=== PATIENT | female | born 1970 | race Caucasian/White ===

== ENCOUNTER 2023-03-17 08:33 | Emergency (ER) | payer OTHER, SELFPAY ==
--- NOTE | ~2023-03-17 | CT_ITS ---
EXAMINATION: CT abdomen pelvis wo con DATE: 03/17/2023 10:48 INDICATION: Right flank pain. TECHNIQUE: Computed tomography (CT) of the abdomen and pelvis was performed without intravenous contr ast. Automated exposure control and iterative reconstruction technique were employed. The dose-length product was 1019.21 mGy-cm. COMPARISON: None. FINDINGS: The visualized portions of the lung bases demonstrate mild atelectasis. No pleural effusion . The heart size is normal. No pericardial effusion. There are cysts in the liver measuring up to 10 mm. The gallbladder, spleen, pancreas, and adrenal glands are normal. There is cortical thinning of r ight kidney. There is moderate atrophy of left kidney. There is bilateral medullary nephrocalcinosis. There are calyceal stones in each kidney measuring up to 4 mm. There is a 4 mm calcification in eith er the left ureter or left ovarian vein at the level of the crossing of the iliac vessels. There are no dilated loops of bowel. The appendix is normal. There are no pathologically enlarged lymph nodes. There is no free intraperitoneal fluid. There is an umbilical hernia containing fat. There is mild th oracic and lumbar spondylosis. IMPRESSION: 1. 4 mm calcification that may be in either the left mid ureter or the left ovarian vein. No hydrone phrosis. 2. Bilateral medullary nephrocalcinosis and nonobstructing kidney stones. Reviewed, dictated and finalized at location A. IMPRESSION: 1. 4 mm calcification that may be in either the left mid ureter or the left ov samuel vein. No hydronephrosis. 2. Bilateral medullary nephrocalcinosis and nonobstructing kidney stones.
--- NOTE | ~2023-03-17 | XR_ITS ---
EXAMINATION: XR abdomen/kub 1V DATE: 03/17/2023 10:12 INDICATION: Right flank pain. TECHNIQUE: A supine view of the abdomen on 2 radiographs was obtained. COMPARISON: None. FINDINGS: There are no dilated loops of bowel. There is a small volume of stool in the colon. The kid neys are obscured by bowel. IMPRESSION: 1. No visible urolithiasis. Reviewed, dictated and finalized at location A. IMPRESSION: 1. No visible urolithiasis.
[2023-03-17 09:00] VITALS: BP 124/90; PULSE 99; RESP 16; TEMP 37; O2SAT 96
[2023-03-17 09:29] LABS: Basophils Percent Auto 0.9 % (0.2-1.2); Eosinophils Absolute Auto 0.1 K/mm3 (0-0.3); Eosinophils Percent Auto 2.8 % (0-4.4); Hematocrit 41.5 % (37.0-47.0); Hemoglobin 13.7 g/dL (12.0-15.0); Immature Granulocyte Absolute 0.01 K/mm3 (0.00-0.031); Immature Granulocyte Percent A 0.2 % (0-0.5); Lymphocytes Absolute Auto 1.21 K/mm3 (0.9-3.2); Mean Corpuscular Hemoglobin 30.6 pg (26-34); Mean Corpuscular Volume 92.6 fl (80-100); Mean Platelet Volume 10.2 fl (7.4-10.4); Monocytes Absolute Auto 0.4 K/mm3 (0.1-0.6); Monocytes Percent Auto 7.5 % (2.6-8.5); Neutrophils Absolute Auto 2.9 K/mm3 (1.3-6.7); Neutrophils Percent Auto 62.6 % (45.5-73.1); Platelet Count Result 221 k/mm3 (150-375); Red Blood Count 4.48 M/mm3 (4.2-5.4); Red Cell Distribution Width 13.4 % (11.5-14.5); White Blood Count 4.7 K/mm3 (4.5-10.0)
--- NOTE | 2023-03-17 09:32 | ED.GENADULT ---
HPI - General Adult General Chief complaint: Urogenital-Female Stated complaint: decreased urination Time Seen by Provider: 03/17/23 08:58 Source: patient Mode of arrival: ambulatory Limitations: no limitations History of Present Illness HPI narrative: Patient is a 52-year-old female who presents to the ED with report of flank pain and decreased urine output. Patient reports a history of medullary sponge kidney and frequent kidney stones related to this. She states she has been having issues with passing stones over the last 2 months. She was seen at [facility] for the last couple weeks and had a CT scan of her abdomen pelvis which did not show any passing stones. Patient reports having persistent bilateral flank pain, typically worse on the right side, lower abdominal pain. She also reports having nausea and decreased urine output since last night, states she is only dribbling urine, with dysuria. Denies any hematuria. Denies vomiting. Denies fevers. Patient has seen Dr. Limon in the past. Related Data Home Medications Medication Instructions Recorded Confirmed citalopram 10 mg tablet 10 mg PO DAILY 03/17/23 erenumab-aooe 140 mg/mL 140 mg subcut ONCE 03/17/23 subcutaneous auto-injector (Aimovig Autoinjector) Allergies Allergy/AdvReac Type Severity Reaction Status Date / Time Sulfa (Sulfonamide Allergy Unknown N Verified 03/17/23 09:20 Antibiotics) morphine AdvReac Vomiting Verified 03/17/23 09:20 Review of Systems Review of Systems: CONSTITUTIONAL: Denies fever, chills, or sweats. CARDIOVASCULAR: Denies chest pain. RESPIRATORY: Denies dyspnea. GASTROINTESTINAL: See HPI. GENITOURINARY: See HPI. SKIN: Denies rash or itching. MUSCULOSKELETAL: See HPI. NEUROLOGIC: Denies headache, numbness, or weakness. All systems reviewed & are unremarkable except as noted in HPI and below Exam Narrative: GENERAL: Well appearing, obese with BMI of 33.3, non-toxic, in no acute distress. HEAD: Normocephalic, atraumatic. NECK: Supple. No adenopathy, no masses. RESPIRATORY: Airway patent, respirations nonlabored. Clear to auscultation bilaterally, no rales, rhonchi, wheezing. CARDIOVASCULAR: Regular rate and rhythm without murmurs, rubs, or gallops. Radial pulses 2+ and equal bilaterally. ABDOMINAL: Soft, mild diffuse lower abdominal tenderness, mild tenderness in lateral upper abdomen bilaterally, no significant focal tenderness, nondistended, no hepatosplenomegaly. Normoactive BS. No significant CVA tenderness to percussion. MUSCULOSKELETAL: Moves all extremities. Strength/ROM intact without gross deformities. SKIN: Warm, dry, normal color. No rashes. NEURO: A&O X3. Speech clear. Cranial nerves II-XII grossly intact. Steady gait. No ataxic movements. PSYCHIATRIC: Appropriate mood and affect. Normal interaction. Course Vital Signs Vital signs: Vital Signs Temperature 98.6 F 03/17/23 09:00 Pulse Rate 99 03/17/23 09:00 Respiratory Rate 16 03/17/23 09:00 Blood Pressure 124/90 03/17/23 09:00 Pulse Oximetry 96 03/17/23 09:00 Oxygen Delivery Room Air 03/17/23 09:00 Temperature 98.6 F 03/17/23 09:00 Pulse Rate 99 03/17/23 09:00 Respiratory Rate 16 03/17/23 13:06 Blood Pressure 124/90 03/17/23 09:00 Pulse Oximetry 96 03/17/23 09:00 Oxygen Delivery Room Air 03/17/23 09:00 Medical Decision Making MDM Narrative Medical decision making narrative: Patient presented to ED with flank pain, urinary issues. History of medullary sponge kidney with frequent kidney stones. Vitals stable upon arrival. Patient in no acute distress. Afebrile. Basic laboratory studies unremarkable, no leukocytosis. Stable kidney function with creatinine of 1.0. No records to compare to. This is consistent with patient's self reported GFR however. Urinalysis with 6-10 RBC, no evidence for infection. I attempted a KUB x-ray initially to look for stones as patient valdez
[2023-03-17 09:41] LABS: Alanine Aminotransferase 30 U/L (6-35); Albumin Level 4.3 g/dL (3.5-5.1); Alkaline Phosphatase 51 U/L (38-126); Anion Gap 3 mmol/L (8-16); Aspartate Amino Transferase 29 U/L (14-36); Bilirubin,Total 0.3 mg/dL (0.2-1.3); Blood Urea Nitrogen 13 mg/dL (7-17); Calcium 9.3 mg/dL (8.4-10.2); Carbon Dioxide 24 mmol/L (22-30); Chloride 107 mmol/L (98-107); Estimated CRCL calculation 64 ml/min; Estimated Glomerular Filt Rate 58; Glucose 104 mg/dL (65-110); Potassium 4.4 mmol/L (3.4-5.0); Sodium 134 mmol/L (137-145)
[2023-03-17 09:51] LABS: Appearance Urine Clear (Clear); Bacteria Urine None Seen /hpf; Bilirubin Urine Negative (Negative); Color Urine Yellow (Yellow); Glucose Urine UA Negative (Negative); Ketones Urine Negative (Negative); Leukocyte Esterase Ur Negative LEU/UL (Negative); Nitrate Urine Negative (Negative); Non Pathogenic Casts 0-2; Protein Urine Trace mg/dL (Negative); Specific Grav Ur 1.018 (1.001-1.035); Squamous Epithelial Cell Urine None seen /hpf (Few); WBC Urine 0-5 /hpf
[2023-03-17 10:04] LABS: Add Urine Microscopic? YES
[2023-03-17] MEDS: ACETAMINOPHEN 500 MG TABLET 1000 MG PO (10:23)
[2023-03-17] MEDS: ONDANSETRON INJ 4 MG/2 ML VIAL IV PUSH (10:23)
[2023-03-17] MEDS: SODIUM CHLORIDE 0.9% IV 1,000 ML 999 ML IV CONT (10:24)
[2023-03-17 13:06] VITALS: RESP 16
== END 2023-03-17 13:04 | disposition home or self-care (01) ==
PROVIDERS: Emergency Provider Physician Assistant; PCP Family Medicine
DX: N28.89 Other specified disorders of kidney and ureter (principal); N20.2 Calculus of kidney with calculus of ureter; R11.0 Nausea
CPT/HCPCS: 36415; 74018; 74176; 80053; 81001; 81025; 85025; 96361; 96374; 99284; A9270; J2405; J7030

== ENCOUNTER 2023-11-17 16:55 | Emergency (ER) | payer SELFPAY ==
--- NOTE | 2023-11-17 16:57 | ED_ITS ---
HPI - Nausea/Vomiting/Diarrhea General Chief complaint: Nausea/Vomiting/Diarrhea Stated complaint: Vomiting Time Seen by Provider: 11/17/23 16:57 Source: patient Mode of arrival: ambulatory Limitations: no limitations History of Present Illness HPI Narrative: Patient is a 52-year-old female who presents with 2 days of persistent vomiting and body aches. Patient also states she feels hot and cold. Denies any ab dominal pain or diarrhea. States she has not been able to keep any medication or food down. Does states she still having normal amounts of urine and it is still light yellow in color. Patient has not taken her temperature. Small normal bowel movement yesterday. Denies any congestion, sore throat, cough, ear pain. Denies any known sick contacts. Has taken a Zofran with mild relief of symptoms. Related Data Home Medications Medication Instructions Recorded Confirmed citalopram 10 mg tablet 10 mg PO DAILY 03/17/23 11/17/23 erenumab-aooe 140 mg/mL 140 mg subcut MONTHLY 03/17/23 11/17/23 subcutaneous auto-injector (Aimovig Autoinjector) atorvastatin 10 mg tablet 10 mg PO DAILY 11/17/23 11/17/23 buspirone 5 mg tablet 5 mg PO TID 11/17/23 11/17/23 losartan 100 mg tablet 100 mg PO DAILY 11/17/23 11/17/23 ondansetron 4 mg disintegrating 4 mg PO PRN PRN Nausea 11/17/23 11/17/23 tablet Allergies Allergy/AdvReac Type Severity Reaction Status Date / Time Sulfa (Sulfonamide AdvReac Intermediate Nausea and Verified 11/17/23 17:14 Antibiotics) Vomiting Review of Systems Review of Systems: All systems reviewed & are unremarkable except as noted in HPI and below Constitutional: Constitutional: Reports body ache(s), Reports chills, Denies fatigue, Reports fever(s), Denies headache(s), Denies malaise and Denies weakness Eyes: Eyes: Denies blurry vision, Denies irritation and Denies loss of vision ENT: Denies otalgia, Denies headache(s), Denies nasal discharge, Denies sinus pain and Denies sore throat Cardiovascular: Cardiovascular: Denies chest pain, Denies irregular heart rhythm and Denies dyspnea Respiratory: Respiratory: Denies dyspnea Gastrointestinal: Gastrointestinal: Denies abdominal pain, Denies melena, Denies hematochezia, Denies diarrhea, Reports nausea and Reports vomiting Musculoskeletal: Musculoskeletal: Denies back pain, Denies myalgias and Denies arthralgias Integumentary/Breasts: Skin/Breast: Denies pruritus and Denies rash Neurologic: Denies headache(s), Denies loss of vision and Denies weakness Psychiatric: Psychiatric: Reports no additional psychiatric complaints Endocrine: Endocrine: Denies fatigue PMFSH Comments At time of signature, agree with nursing past medical, surgical, social and family history. There is no relevant family history pertinent to the presenting complaint. Exam Const: General: cooperative, healthy appearing, comfortable, no acute distress and well nourished Nutritional Appearance: well nourished Orientation/consciousness: patient oriented x3 Limitations: no limitations HENMT: Head: normal to inspection, normocephalic and atraumatic Ears: hearing grossly normal bilaterally, external ears normal, TM's normal bilaterally and EAC's normal Face/Nose/Sinus: Normal external nose present, normal facial exam and face symmetric Face and sinus: normal facial exam and face symmetric Mouth: Yes Normal oral and palatal mucosa present, Yes lip normal, Yes tongue normal and Yes moist mucous membranes Throat: posterior oropharynx normal, tonsils normal and uvula midline Eyes: General: appearance normal, both eyes and all related structures Alignment and Position: alignment normal and position normal Periorbital: periorbital findings normal Eyelids: eyelids normal Pupils: Equal, round and reactive pupils present EOM: EOMs intact bilaterally Neck: Neck: normal visual inspection, full ROM and supple Chest: Chest palpation & inspection: normal inspection of the chest Resp: Effort & Inspection: normal respiratory effort and able to speak in complete sentences Auscultation: clear to auscultation bilaterally, no crackles, no rales, no rhonchi and no wheezes Cardio: Rate: regular rate Rhythm: regular rhythm Heart sounds: S1 normal heart sound present and S2 normal heart sound present GI: Inspection: normal to inspection GI Palp: No abdominal tenderness, Yes Soft to palpation and No Guarding due to palpation present (GI) Auscultation: normal bowel sounds Rectal Exam: deferred Skin: General skin exam: normal color and no rashes or lesions noted Neuro: General: patient oriented x3 and moves all extremities Cranial nerves: Yes Equal, round and reactive pupils present Speech: normal speech Gait exam (Neuro): Normal gait present Extrem: General: normal to inspection, full ROM and no edema Psych: Appearance: grossly normal and well kempt Mental Status: mental status grossly normal Speech and movement: Normal speech and movement present Affect: normal affect Attitude: cooperative Thought process: Normal thought process present Course Course Emergency Course: Patient is aware of diagnosis, understands and agrees to treatment plan. Anticipatory guidance given. Patient agrees to follow-up as directed and is aware of reasons to seek care at the emergency department. Portions of this record may have been created with voice recognition software Level of Care: Express Care Visit Vital Signs Vital signs: Vital Signs Temperature 36.5 C 11/17/23 17:05 Pulse Rate 94 11/17/23 17:05 Respiratory Rate 18 11/17/23 17:05 Blood Pressure 142/100 H 11/17/23 17:05 Pulse Oximetry 100 11/17/23 17:05 Oxygen Delivery Room Air 11/17/23 17:05 Temperature 36.5 C 11/17/23 17:07 Pulse Rate 94 11/17/23 17:07 Respiratory Rate 18 11/17/23 17:07 Blood Pressure 142/100 H 11/17/23 17:07 Pulse Oximetry 100 11/17/23 17:07 Oxygen Delivery Room Air 11/17/23 17:07 Reviewed MDM - Nausea/Vomiting/Diarrhea MDM Narrative Medical decision making narrative: Exam findings show no acute concerns or changes; patient is non-toxic appearing and is in no distress.? Patient is appropriate for outpatient treatment and follow-up. Discharge instructions reviewed with patient, as well as provided in writing per nursing staff. The instructions also include specific and strict return/GO TO THE ER as well as f/u information. All questions have been answered, and the patient deny any further questions with discharge and discharge plan. Differential Diagnosis Differential diagnosis: Likely traveler's diarrhea, food poisoning, gastroenteritis, clostridium difficile infection, drug-induced nausea and vomiting, dehydration and other (Influenza) Medical Records Attestation: I reviewed the patient's medical records. Lab Data Attestation: I reviewed the patient's lab results. Labs: Influenza A Screen Negative Reference Range: Negative Influenza B Screen Negative Reference Range: Negative Discharge Plan Discharge Clinical Impression: Gastroenteritis Patient Disposition: Home, Self-Care Condition: Stable Instructions: Acute Nausea and Vomiting (ED) Additional Instructions: Your influenza was negative Stay hydrated. Take small sips of fluid containing electrolytes frequently. You should go to the hospital if you experience return of persistent nausea and vomiting that does not resolve and does not allow you to tolerate any food or fluids, persistent fevers for greater than 2-3 more days, increasing abdominal pain that persists despite medications, persistent diarrhea, dizziness, syncope (fainting), or for any other concerns. Prescriptions: New ondansetron 4 mg tablet,disintegrating 4 mg PO Q6-8H PRN (Reason: nausea and vomiting) Qty: 7 0RF No Action buspirone 5 mg tablet 5 mg PO TID atorvastatin 10 mg tablet 10 mg PO DAILY losartan 100 mg tablet 100 mg PO DAILY ondansetron 4 mg tablet,disintegrating 4 mg PO PRN PRN (Reason: Nausea) citalopram 10 mg Tablet 10 mg PO DAILY Aimovig Autoinjector 140 mg/mL Auto-Injector 140 mg SUBCUT MONTHLY Rx Instructions: administer as two 70 mg injections at separate sites Follow-up/Referrals: Harms,Brian Ac M.D. [Primary Care Provider] - 3 Days Stand Alone Forms: Work/School Release IP Time of Disposition: 17:32
[2023-11-17 17:05] VITALS: BP 142/100; PULSE 94; RESP 18; TEMP 36.5; O2SAT 100
[2023-11-17 17:07] VITALS: BP 142/100; PULSE 94; RESP 18; TEMP 36.5; O2SAT 100
== END 2023-11-17 17:34 | disposition home or self-care (01) ==
PROVIDERS: Emergency Provider Nurse Practitioner Family; PCP Family Medicine
DX: K52.9 Noninfective gastroenteritis and colitis, unspecified (principal); E78.00 Pure hypercholesterolemia, unspecified; F41.9 Anxiety disorder, unspecified; F32.A Depression, unspecified; Z86.16 Personal history of COVID-19
CPT/HCPCS: 87804; 99213; G0463

== ENCOUNTER 2024-11-26 10:57 | Outpatient (CLI) | payer OTHER, SELFPAY ==
--- NOTE | ~2024-11-26 | MM_ITS ---
EXAMINATION: MM screening raulito BI w david HISTORY: Screening TECHNIQUE: Craniocaudal and mediolateral oblique 3-D tomosynthesis images were obtained and synthetic 2-D images were generated. CAD analysis was submitted and interpreted. COMPARISON: No prior mammogram is available for comparison at this institution. BREAST PARENCHYMAL COMPOSITION: Not dense: There are scattered areas of fibroglandular density. FINDINGS: There is no evidence of suspicious mass, calcification, or architectural distortion to sugg est malignancy in either breast. There has been no suspicious interval change. IMPRESSION: 1. No mammographic evidence of malignancy. 2. Recommend routine screening mammography in one year. BI-RADS Category 1: Negative Reviewed, dictated and finalized at location A.
== END 2024-11-26 10:58 | disposition home or self-care (01) ==
LOC: MICIMG 10:58
PROVIDERS: PCP Family Medicine; Visit Provider Family Medicine
DX: Z12.31 Encounter for screening mammogram for malignant neoplasm of breast (principal)
CPT/HCPCS: 77063; 77067